=== PATIENT | male | born 1990 | race Caucasian/White ===

== ENCOUNTER 2025-04-01 10:50 | Emergency (ER) | payer SELFPAY ==
--- NOTE | ~2025-04-01 | XR_ITS ---
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 No fracture or dislocation left shoulder. LEFT elbow: 1. No fracture or dislocation left elbow. RIGHT knee: 1. No fracture, dislocation, or effusion right knee. Reviewed, dictated and finalized at location R. OMS MANAGER
--- NOTE | 2025-04-01 10:51 | ED_ITS ---
HPI - General Adult General Chief complaint: Extremity Injury, Upper Stated complaint: Left Arm/Right Knee Pain Time Seen by Provider: 04/01/25 11:03 Source: patient, RN notes reviewed and old records reviewed Mode of arrival: ambulatory Limitations: no limitations History of Present Illness HPI narrative: 34-year-old male presents to the [facility] with left upper arm pain, shoulder and elbow as well as right knee pain. Patient states that he fell 30 minutes prior to arrival. States that he fell landing with his knee on a tire and then on to his left arm. No treatment prior to arrival. Denies hitting head. No loss of consciousness. denies neck or back pain Onset (ago): minute(s) (30) Related Data Home Medications ?Medication ?Instructions ?Recorded ?Confirmed ?Last Taken ?Type dulaglutide 4.5 mg/0.5 mL mg subcut 04/01/25 Unknown History subcutaneous pen injector (Trulicity) Held on 04/01/25. Instructions: Patient no longer taking empagliflozin 10 mg tablet mg 04/01/25 Unknown Histor y (Jardiance) losartan 25 mg tablet mg 04/01/25 Unknown History Held on 04/01/25. Instructions: Patient no longer taking omeprazole 20 mg capsule,delayed mg 04/01/25 Unknown History release pravastatin 40 mg tablet mg 04/01/25 Unknown History Allergies Allergy/AdvReac Type Severity Reaction Status Date / Time No Known Allergies Allergy Verified 04/01/25 11:11 Review of Systems Review of Systems: All systems reviewed & are unremarkable except as noted in HPI and below Constitutional: Constitutional: Reports no additional constitutional complaints Cardiovascular: Cardiovascular: Reports no additional cardiovascular complaints, Denies chest pain and Denies dyspnea Respiratory: Respiratory: Reports no additional respiratory complaints, Denies chest congestion, Denies cough and Denies dyspnea Musculoskeletal: Musculoskeletal: Reports as per HPI Integumentary/Breasts: Skin/Breast: Reports system reviewed and no additional complaints, except as docu PMFSH Comments At the time of my signature, I reviewed and agree with the nursing past medical, surgical, social, and family history. There is no relevant family history pertinent to the patient complaint. Exam Const: General: cooperative, healthy appearing, comfortable, no acute distress, well developed, alert and well nourished Nutritional Appearance: well nourished Orientation/consciousness: patient oriented x3 Limitations: no limitations HENMT: Head: normal to inspection Eyes: General: appearance normal, both eyes and all related structures Alignment and Position: alignment normal Neck: Neck: normal visual inspection, full ROM, no lymphadenopathy and no meningeal signs Chest: Chest palpation & inspection: normal inspection of the chest Resp: Effort & Inspection: normal respiratory effort and able to speak in complete sentences Auscultation: clear to auscultation bilaterally, no crackles, no rales, no rhonchi and no wheezes Cardio: Rate: regular rate Back/Spine/Pelvis: Back: no CVA tenderness and No back tenderness Skin: General skin exam: normal color and no rashes or lesions noted Neuro: General: patient oriented x3, gait normal, moves all extremities and no meningeal signs Cognition (Neuro): normal cognition Speech: normal speech Gait exam (Neuro): Normal gait present Extrem: General: normal to inspection, full ROM, capillary refill normal and normal gait Left upper extremity: shoulder/upper arm tenderness ( generalized); no swelling and no ecchymosis and elbow/forearm tenderness ( generalized); no ecchymosis Right lower extremity: knee Details: tenderness, normal ROM, abrasion and ecchymosis; no swelling Psych: Appearance: grossly normal and well kempt Mental Status: mental status grossly normal Speech and movement: Normal speech and movement present and Clear speech present Affect: normal affect Attitude: cooperative Course Course Level of Care: Express Care Visit Vital Signs Vital signs: Vital Signs Temperature 98.4 F 04/01/25 11:03 Pulse Rate 91 04/01/25 11:03 Respiratory Rate 18 04/01/25 11:03 Blood Pressure 133/78 04/01/25 11:03 Pulse Oximetry 99 04/01/25 11:03 Oxygen Delivery Room Air 04/01/25 11:03 Temperature 98.4 F 04/01/25 11:03 Pulse Rate 91 04/01/25 11:03 Respiratory Rate 18 04/01/25 11:03 Blood Pressure 133/78 04/01/25 11:03 Pulse Oximetry 99 04/01/25 11:03 Oxygen Delivery Room Air 04/01/25 11:03 reviewed MDM MDM Narrative Medical decision making narrative: patient sitting in exam room. Patient is nontoxic, vitals stable. Patient presents after falling landing on his knee and left arm. x-ray showed no fracture. Patient is appropriate for outpatient treatment with close follow-up Discharge instructions reviewed with patient, as well as provided in writing per nursing staff. The instructions also include specific and strict return/GO TO THE ER as well as f/u information. All questions have been answered, and the patient deny any further questions with discharge and discharge plan. Some parts of this dictation were generated by voice recognition software and may contain typographical and/or grammatical inaccuracies. Differential Diagnosis Differential Diagnosis: Differential diagnostic considerations for upper extremity injury include sprain/strain of wrist, fracture of wrist, finger sprain, dislocation of finger, fracture of hand, dislocation of shoulder, fracture of humerus, fracture of clavicle, laceration, tendon injury, carpal tunnel syndrome.? Differential diagnostic considerations for lower extremity injury include ankle sprain/strain, acute internal derangement of knee, fracture of femur, fracture of hip, puncture wound of foot, fracture of toe, fracture of ankle, tendon rupture (achilles/patellar/quadriceps). 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 No fracture or dislocation left shoulder. LEFT elbow: 1. No fracture or dislocation left elbow. RIGHT knee: 1. No fracture, dislocation, or effusion right knee. Discharge Plan Discharge Clinical Impression: Fall, Contusion of knee, right, Contusion of arm, left Patient Disposition: Home Condition: Stable Instructions: Contusion in Adults (ED) Additional Instructions: Your Xray did not show a fracture in your arm or in your knee. Wear good supportive shoes at all times. Ice should be applied to help reduce swelling. It can be used for 20 to 30 minutes, every 2-3 hours while awake. Do not apply ice directly to your skin. You can alternate ibuprofen 600mg and Tylenol 650mg every 4 hours as needed for pain Please schedule a follow-up visit with your personal physician for further evaluation and treatment within 2 weeks especially if symptoms persist. For new or worsening symptoms go directly to the emergency room Patient Language: Kenyan Prescriptions: No Action pravastatin 40 mg tablet losartan 25 mg tablet omeprazole 20 mg capsule,delayed release(DR/EC) Jardiance 10 mg tablet Trulicity 4.5 mg/0.5 mL pen injector SUBCUT Follow-up/Referrals: UNKNOWN,DOCTOR [Non-Staff] Stand Alone Forms: Work/School Release IP Time of Disposition: 12:03
[2025-04-01 11:03] VITALS: BP 133/78; PULSE 91; RESP 18; TEMP 36.9; O2SAT 99
== END 2025-04-01 12:10 | disposition home or self-care (01) ==
PROVIDERS: Emergency Provider Nurse Practitioner; PCP Family Medicine
DX: S40.022A Contusion of left upper arm, initial encounter (principal); S80.01XA Contusion of right knee, initial encounter; W19.XXXA Unspecified fall, initial encounter; I10 Essential (primary) hypertension; E11.9 Type 2 diabetes mellitus without complications; Z79.84 Long term (current) use of oral hypoglycemic drugs; Z79.85 Long-term (current) use of injectable non-insulin antidiabetic drugs; E78.00 Pure hypercholesterolemia, unspecified; K21.9 Gastro-esophageal reflux disease without esophagitis
CPT/HCPCS: 73030; 73080; 73562; 99214; G0463